=== PATIENT | male | born 1995 ===

== ENCOUNTER 2020-03-08 08:55 | Day surgery (SDC) | payer OTHER, SELFPAY ==
[2020-03-03 09:43] VITALS: BMI 28.7
[2020-03-08 09:10] VITALS: BP 131/79; PULSE 58; RESP 12; TEMP 36.8; O2SAT 100; BMI 28.7
--- NOTE | 2020-03-08 09:14 | PM.HP.1 ---
History of Present Illness History of Present Illness Date Patient Seen: 03/08/20 Time Patient Seen: 09:14 Chief complaint: EXCISION PILONIDAL CYST Narrative: This is a 24-year-old man who has a history of psoriasis, who comes in with a complaint of pilonidal cyst which is been present for 6 years. He has never had it surgically drained or treated, it usually swells and drains on its own, but never entirely goes away. It is currently fairly quiescent. ROS: Thirteen system review is otherwise negative other than as mentioned below and in HPI. PE: GENERAL: Well groomed and cooperative. Appears stated age. Answers questions promptly and appropriately. Vital signs noted. HENT: Normocephalic, atraumatic. Hearing intact. EYES: Conjunctiva pink, sclera white, no periorbital swelling. CARDIOVASCULAR: Regular rate. No pedal edema. RESPIRATORY: Non-tachypneic, breathing comfortably on room air. GASTROINTESTINAL: Abdomen soft and non-distended MUSCULOSKELETAL: Equal tone and mass bilaterally. SKIN: Warm, dry, soft, appropriate color for ethnicity. No other lesions, rashes, or wounds. NEURO: Alert and Oriented X 3. No gross sensory deficits, or cognitive issues. PSYCH: Appropriate affect and mood. Patient History Family & Social History Social History: household members family,friend(s) Tobacco & Substance use: Smoking Status Never smoker alcohol intake current Meds Home Medications and Allergies Home Medications Medication Instructions Recorded Confirmed Type No Known Home Medications 12/09/19 03/03/20 History Allergies Allergy/AdvReac Type Severity Reaction Status Date / Time No Known Drug Allergies Allergy Verified 03/08/20 09:09 Assessment & Plan Assessment and plan (1) Pilonidal cyst: Status: Acute (2) Pilonidal sinus: Status: Acute Assessment & Plan narrative: This is a 24-year-old man with chronic pilonidal cyst, and is here for open excision of his pilonidal cyst. Risks and benefits of the procedure were discussed including risk of bleeding, infection, damage to nearby structures, need for additional procedures, recurrence of the pilonidal cyst or infection, scarring, prolonged healing, pain. Patient desires to proceed with surgery. Time Spent With Patient Time with patient: 15-24 minutes Quality VTE Deep Vein Thrombosis/Pulmonary Embolism Present on Admission: No
[2020-03-08] MEDS: LACTATED RINGERS 1,000 ML 42 ML IV (09:27)
[2020-03-08] MEDS: PIPERACILLIN-TAZO 3.375 GM/50 ML FROZ.PIGGY IV (09:33)
--- NOTE | 2020-03-08 10:07 | SUR.OPER ---
Prone on padded OR bed, head in foam head support, gel chest rolls, gel pad under knees, pillow under lower legs, toes free of pressure, arms secured on padded arm boards at <90 degrees abduction. Safety belt at thigh.
[2020-03-08] MEDS: BUPIVACAINE LIPOSOME 266 MG/20 ML VIAL INJ (10:11)
[2020-03-08] MEDS: BUPIVACAINE 0.25% W/ EPI 30 ML VIAL INJ (10:11)
--- NOTE | 2020-03-08 10:26 | PM.OP.1 ---
Operative Date/Time/Diagnoses Date of procedure: 03/08/20 Time of procedure: 10:26 Pre-op diagnosis: chronic pilonidal cyst Post-op diagnosis: same Procedure & Clinicians Procedure: pilonidal cyst excision Same procedure as scheduled: Yes Indications: Chronic pilonidal cyst with abscess Surgeon: Gretel Gordon Click Yes if Unassisted: Yes Anesthesia Type: General Operative Notes Findings: pilonidal cyst with sinus, impacted hair, and purulent fluid Specimen(s): none sent Estimated Blood Loss (mL): 1 Procedure in detail: 3 holes punched w 4mm punch; cleaned with curette, irrigation, 4x4 guaze; irrigated clear; packed with 1/4 inche gauze; local with 30mL of 0.25% marcaine with epi, and 20mL exparel The patient was brought into the OR. Sequential compression devices were placed on both legs and turned on. Appropriate perioperative antibiotics were given. General anesthesia was induced and the patient was intubated. The patient was turned prone onto the OR table. All bony prominences were padded. The buttocks were taped apart. The sacrococcygeal area was prepped and draped in sterile fashion with chlorprep. Surgical timeout was conducted. Visual inspection revealed a 5mm x 5mm purple scar in the midline with three punctate pilonidal pits inferior to it. 0.25% Marcaine with epi was injected around each of the pits and the scar using 20mL of anesthetic. A 4mm biopsy punch was used to punch out each of the pits as well as the scar. Clumps of hair and granulation tissue were found in the cyst cavity and removed using a debakey forcep. The pilonidal cyst beneath the skin was cleaned with curettes, irrigated with asepto, and suctioned clean. I then used a dry Raytec pulled through the pits to debride within the cyst cavity overlying the presacral fascia. This process continued until no more hair or granulation tissue came out. 20mL of Exparel was then injected into the surrounding skin and soft tissue. Once the cyst was debrided clean of all granulation tissue and hair, the cyst cavity was packed with sterile iodoform gauze strip packing, with a 2 inch tail sticking out. A stack of 4x4 gauze was then used to cover the wound and secured in place with medipore tape. The patient was transferred onto his hospital bed into supine position. He was then awakened from anesthesia and extubated. Needle, sponge, and instrument counts were correct x 2. The patient was transferred to the PACU in stable condition. Complications: none Post-operative Condition: stable Disposition: PACU
[2020-03-08 10:34] VITALS: BP 131/64; PULSE 89; RESP 20; TEMP 36.4; O2SAT 100
[2020-03-08 10:39] VITALS: BP 115/71; PULSE 86; RESP 20; O2SAT 100
[2020-03-08 10:44] VITALS: BP 114/65; PULSE 76; RESP 22; O2SAT 100
[2020-03-08 10:48] VITALS: BP 118/62; PULSE 73; RESP 12; TEMP 36.6; O2SAT 100
--- NOTE | 2020-03-08 11:14 | SUR.PHASEII ---
[id number] Pt anxious to be discharged as his has an 11:00 checkin at [facility] for an appointment. Meds will also be picked up at [facility] in the same lobby. Pt A&O, talking with . Instructions read by RN and then while taking out his IV. Denies pain/nausea. Smoothie given to him by his . Stable. Clothes given. Pt to [facility] lobby by RN with present. Care turned over to her.
== END 2020-03-08 11:00 | disposition home or self-care (01) ==
PROVIDERS: PCP Family Medicine; Referring Provider Family Medicine; Visit Provider Surgery
PROC: (CPT 11771; principal; 2020-03-08 10:15)
DX: L05.01 Pilonidal cyst with abscess (principal)
CPT/HCPCS: 11771; C9290; J0330; J1100; J2405; J2543; J2704; J3010

== ENCOUNTER → 2023-06-11 11:04 | Outpatient (CLI) | payer OTHER, SELFPAY ==
[2023-06-11 19:41] LABS: Add Manual Diff / Slide Review NO; Basophils Absolute Auto 0 /uL (0-100); Basophils Percent Auto 0.3 % (0-2); Eosinophils Absolute Auto 200 /uL (0-450); Eosinophils Percent Auto 2.7 % (2-4); Hemoglobin 15.5 g/dL (13.5-17.5); Lymphocytes Absolute Auto 1500 /uL (1100-4500); Lymphocytes Percent Auto 21.7 % (25-40); Mean Corpuscular HGB Conc 33.6 % (30-36); Mean Corpuscular Hemoglobin 28.7 PG (26-34); Mean Corpuscular Volume 85.4 fL (80-100); Monocytes Absolute Auto 500 /uL (0-900); Monocytes Percent Auto 7.7 % (3-14); Neutrophils Absolute Auto 4700 /uL (1500-7000); Neutrophils Percent Auto 67.6 % (50-75); Platelet Count 169 X10^3/uL (150-400); Red Blood Cell Count 5.39 X10^6/uL (4.5-5.9); Red Cell Distribution Width 13.9 % (11.6-14.8); White Blood Cell Count 6.9 X10^3/uL (4.5-11.0)
[2023-06-11 19:42] LABS: HEMOLYSIS < 15 (0-50)
[2023-06-11 19:47] LABS: Alanine Aminotransferase 29 IU/L (<50); Albumin 4.1 g/dL (3.5-5.0); Albumin Globulin Ratio 1.4 (1.0-2.8); Alkaline Phosphatase 45 U/L (38-126); BUN Creatinine Ratio 19.4 (6-22); Bilirubin Total 0.7 mg/dL (0.2-1.3); Blood Urea Nitrogen 14 mg/dL (9-20); Calcium 9.5 mg/dL (8.4-10.2); Carbon Dioxide 29 mmol/L (22-32); Chloride 101 mmol/L (98-107); Cholesterol 194 mg/dL (140-199); Estimated Glomerular Filt Rate > 60 mL/min (>60); Glucose 100 mg/dL (70-100); Potassium 4.2 mmol/L (3.4-5.1); Sodium 137 mmol/L (137-145); Total Protein 7.1 g/dL (6.3-8.2)
[2023-06-11 19:52] LABS: Hemoglobin A1C% w Est Avg Glu 5.2 % (4.0-6.0)
[2023-06-11 19:56] LABS: Triglycerides 92 mg/dL (35-150)
[2023-06-11 20:32] LABS: Ferritin 30 ng/mL (18-464)
[2023-06-11 20:52] LABS: Folate 16.2 ng/mL (2.76-20.0); Vitamin B12 Reflex MMA if <400 284 pg/mL (239-931)
[2023-06-11 20:58] LABS: HDL Cholesterol 63 mg/dL (40-60); LDL Cholesterol Calculated 113 mg/dL (<100)
[2023-06-13 16:08] LABS: Aspartate Aminotransferase 23 IU/L (17-59)
[2023-06-17 01:13] LABS: Methylmalonic Acid,Serum 94 nmol/L (0-378)
== END ==
PROVIDERS: PCP Family Medicine; Visit Provider Family Medicine
DX: G62.9 Polyneuropathy, unspecified (principal); Z13.1 Encounter for screening for diabetes mellitus; Z13.6 Encounter for screening for cardiovascular disorders
CPT/HCPCS: 80053; 80061; 82607; 82728; 82746; 83036; 83921; 85025

== ENCOUNTER → 2023-06-19 14:04 | Outpatient (CLI) | payer OTHER, SELFPAY ==
[2023-06-19 19:48] LABS: Alanine Aminotransferase 28 IU/L (<50); Albumin 4.5 g/dL (3.5-5.0); Albumin Globulin Ratio 1.6 (1.0-2.8); Alkaline Phosphatase 48 U/L (38-126); Aspartate Aminotransferase 27 IU/L (17-59); Bilirubin Total 0.6 mg/dL (0.2-1.3); Bilirubin Unconjugated 0.3 mg/dL (0.0-1.1); Globulin 2.9 g/dL (1.7-4.1); HEMOLYSIS < 15 (0-50); Total Protein 7.4 g/dL (6.3-8.2)
[2023-06-19 20:23] LABS: Hepatitis B Surface Antigen NEGATIVE s/c (NEGATIVE)
[2023-06-19 20:35] LABS: HIV 1 & 2 Ab/Ag 4th Gen Combo NEGATIVE (NEGATIVE); Hep C Virus Ab w/Reflex Quant NEGATIVE s/c (NEGATIVE)
[2023-06-21 08:02] LABS: Hepatitis B Core Antibody Negative (Negative)
[2023-06-23 08:15] LABS: Hepatitis B Surf Ab Qualitativ Non Reactive (.)
[2023-06-29 17:44] LABS: RPR Screen Non Reactive
[2023-06-29 17:45] LABS: Treponema pallidum Antibodies Non Reactive
== END ==
PROVIDERS: PCP Family Medicine; Visit Provider Family Medicine
DX: Z20.5 Contact with and (suspected) exposure to viral hepatitis (principal)
CPT/HCPCS: 80076; 86592; 86704; 86706; 86780; 86803; 87340; 87389